=== PATIENT | female | born 1975 | race Asian ===

== ENCOUNTER 2020-10-06 11:47 | Emergency (ER) | payer OTHER ==
[~2020-10-06] VITALS: Ht 165.1 cm; Wt 73.5 kg
[2020-10-06 11:58] VITALS: BP 139/68
[2020-10-06] MEDS ORDERED: HYDROcodone-ACET 10/325MG TAB PO ONE (12:15)
== END 2020-10-06 13:39 | disposition home or self-care (01) ==
LOC: EDBD 11:47 → ER 11:47
DX: S16.1XXA Strain of muscle, fascia and tendon at neck level, initial encounter (principal); S09.8XXA Other specified injuries of head, initial encounter; S70.02XA Contusion of left hip, initial encounter; V49.9XXA Car occupant (driver) (passenger) injured in unspecified traffic accident, initial encounter; Y93.89 Activity, other specified; Y92.89 Other specified places as the place of occurrence of the external cause; Y99.8 Other external cause status
CPT/HCPCS: 70450; 72125; 73502